=== PATIENT | male | born 2000 | race African-American/Black ===

== ENCOUNTER 2023-04-16 09:54 | Emergency (ER) | payer MEDICAID, SELFPAY ==
[2023-04-16 09:55] VITALS: BP 131/86; PULSE 102; RESP 18; TEMP 36.7; O2SAT 97; BMI 25.0
[2023-04-16] MEDS: sodium chloride 0.9% 1,000 ML 999 ML IV (11:29)
--- NOTE | 2023-04-16 11:31 | W.ED.EXTPRO ---
HPI - Extremity Problem General: Chief complaint: Nausea/Vomiting/Diarrhea Stated complaint: n/v, dizzy, racing heart Time Seen by Provider: 04/16/23 10:00 Source: patient Mode of arrival: ambulatory Limitations: no limitations History of Present Illness: Patient is a 22-year-old male with no known past medical history here for concerns of left lower extremity numbness that he states he began noticing yesterday. He states he is not having any pain in the extremity. He has not noticed any swelling or color/temperature changes. Exacerbating or alleviating factors. He states earlier today he had an episode where he felt like his epigastric region was tightening felt like he was having to suck air which then in turn made his heart feel like it was racing. He states this episode lasted approximately 30 seconds before subsiding. Upon arrival to the emergency department he is not having any chest pain, shortness of breath, difficulty breathing, or abdominal pain. His only complaint at this time is the paresthesias to his left lower leg. MD Complaint: other (L LE numbness) Onset (ago): day(s) (yesterday) Pain Consistency: constant Location: left and lower extremity Radiation: none Relieving factors: nothing Exacerbating factors: nothing Associated symptoms: Reports chest pain (subsided ); Deny fever(s) or rash Review of Systems Const: Denies: fever(s), chills, body aches, fatigue or malaise Eyes: Denies: change in vision or blurry vision Card: Reports: chest pain (subsided ); Denies: palpitations, irregular heart rhythm, edema, swelling of feet/ankles, lightheadedness, syncope, pre-syncope, dyspnea on exertion, orthopnea, leg pain with exertion or acrocyanosis Resp: Denies: dyspnea, productive cough, non-productive cough, wheezing, pain on inspiration, hemoptysis or chest congestion GI: Reports: abdominal pain (subsided now); Denies: nausea, vomiting, hematemesis, heartburn, diarrhea, GI cramping, hematochezia or melena : Denies: flank pain, difficulty urinating, dysuria, urinary frequency, urinary urgency or urinary hesitancy Musc: Denies: neck pain, back pain, extremity pain, extremity swelling, joint pain, joint swelling, joint redness, joint warmth, joint stiffness, limited range of motion, muscle cramps or muscle weakness Skin/Breast: Denies: rash Neuro: Reports: numbness in extremities (L LE) and sensory changes (L LE); Denies: headache(s), weakness in extremities or difficulty walking Physical Exam Const: COMMON NORMALS: no acute distress, average body habitus, patient oriented x3, no limitations, healthy appearing, alert and well nourished ORIENTATION/CONSCIOUSNESS: Yes awake, Yes oriented to person, Yes oriented to place and Yes oriented to time HENMT: COMMON NORMALS: normocephalic and atraumatic HEAD & SCALP: normal to inspection, normocephalic and atraumatic FACE & SINUS: face symmetric Eye: GENERAL EYE: appearance normal, both eyes and all related structures and normal light reflex DIRECT OPHTHALMOSCOPY: Yes normal light reflex Neck/C-Spine: COMMON NORMALS: full ROM, no lymphadenopathy, no meningeal signs, no JVD and No carotid bruits Chest: COMMONS NORMALS: normal inspection of the chest and normal palpation of entire chest wall Resp: COMMON NORMALS: normal respiratory effort and clear to auscultation bilaterally AUSCULTATION: clear to auscultation bilaterally Cardio: COMMON NORMALS: no JVD, regular rate and regular rhythm RATE: regular rate RHYTHM: regular rhythm GI: COMMON NORMALS: Normal to inspection, nondistended, normoactive bowel sounds present, Soft to palpation, non-tender, No hepatosplenomegaly present and no masses PALPATION: Yes Soft to palpation and Yes No hepatosplenomegaly present : COMMON NORMALS: Yes no CVA tenderness BLADDER/KIDNEY EXAM: Yes no CVA tenderness Back/Pelvis: COMMON NORMALS: no CVA tenderness, thoracic and lumbar spine normal to inspection, no thoracic nor lumbar tenderness, thoraco-lumbar ROM normal and straight leg raise negative bilaterally LUMBAR SPINE/LOWER BACK: Yes normal to inspection, Yes lumbar ROM normal, No pain with ROM, No lumbar spinal tenderness, No paraspinal muscle tenderness, No paraspinal muscle spasm and Yes straight leg raise negative bilaterally PELVIS: Yes buttocks normal and No sciatic notch tenderness SACROILIAC JOINTS: Yes SI joints normal SACRUM: no tenderness COCCYX: no tenderness Extremity: COMMON NORMALS: normal to inspection, full ROM, capillary refill normal, no joint enlargement, no clubbing, cyanosis or edema, no calf tenderness and no pedal edema GENERAL: Yes normal exam except as noted LEFT LOWER EXTREMITY: Yes upper leg and Yes lower leg OTHER: Patient reports abnormal sensation when compared to contralateral extremity to anterior and lateral thigh as well as calf and plantar regions. Anterior lower leg and medial thigh he states feels identical on both sides. Posterior thighs feel identical per patient. Patient maintains normal strength throughout extremity with intact reflexes. He has no pain. No swelling noted. No color/temp changes noted. Brisk cap refill. Easily palpable DP/PT pulses. Neuro: PIEDAD COMA SCALE: document GCS findings [place] coma scale eye opening: Spontaneous [place] coma scale verbal response: Orientated [place] coma scale motor response: Obey commands [place] coma scale total score: 15 COMMON NORMALS: patient oriented x3, moves all extremities, no focal motor deficits and gait normal SENSORIUM/ORIENTATION: Yes alert, Yes oriented to person, Yes oriented to place and Yes oriented to time MENINGEAL SIGNS: Yes no meningeal signs SPEECH: speech normal GAIT: Yes Normal gait present MOTOR EXAM: 5/5 motor strength present throughout Skin: COMMON NORMALS: no rashes or lesions noted GENERAL SKIN EXAM: no rashes or lesions noted Course Vital Signs: Vital signs: Vital Signs Temperature 98.1 F 04/16/23 09:55 Pulse Rate 102 H 04/16/23 09:55 Respiratory Rate 18 04/16/23 09:55 Blood Pressure 131/86 04/16/23 09:55 Pulse Oximetry 97 04/16/23 09:55 Oxygen Delivery Me thod Room Air 04/16/23 09:55 MDM - Extremity (Nontraumatic) Medical Decision Making Patient is a 22-year-old female presents to ED today with complaint of left leg paresthesias as well as a 30 second episode of epigastric and chest pain. Upon arrival to the emergency department patient patient does not complain of any discomforts. His only complaint is left leg paresthesia. Paresthesia does not seem to affect any specific lumbar dermatome. Strength and reflexes are unaffected. Does not have complaints of saddle anesthesia. No bowel or bladder dysfunction. He does not complain of back pain. He has no calf pain. Pulses are easily palpable. No swelling, color, or temperature changes noted. Without pain I would have a low suspicion for sickle cell vaso-occlusive symptoms. He has no personal or family history of sickle cell. Vital signs are stable. Blood work is unremarkable. At this time patient is stable to follow-up with his primary care provider. Strict return ED precautions given. Lab Data 04/16/23 11:25 04/16/23 11:25 Radiology Impressions Chest X-Ray 04/16/23 11:34 IMPRESSION: No acute findings. Laboratory Results WBC 5.34 10^3/uL (3.29-11.43) 04/16/23 11:25 RBC 5.41 10^6/uL (3.85-5.65) 04/16/23 11:25 Hgb 16.70 g/dL (11.27-16.99) 04/16/23 11:25 Hct 48.6 % (37-53) 04/16/23 11:25 MCV 89.8 fl (82-101) 04/16/23 11:25 MCH 30.9 pg (27-33) 04/16/23 11:25 MCHC 34.4 g/dL (30-55) 04/16/23 11:25 RDW 12.6 % (12.1-15.1) 04/16/23 11:25 Plt Count 243 10^3/cmm (157-399) 04/16/23 11:25 MPV 10.7 fL (7.4-10.4) H 04/16/23 11:25 Neut % (Auto) 48.9 % 04/16/23 11:25 Lymph % (Auto) 41.4 % 04/16/23 11:25 [place] % (Auto) 8.4 % 04/16/23 11:25 Eos % (Auto) 0.7 % 04/16/23 11:25 Baso % (Auto) 0.4 % 04/16/23 11:25 Neut # (Auto) 2.61 10^3/uL (1.8-7.7) 04/16/23 11:25 Lymph # (Auto) 2.2 10^3/uL (0.8-4.8) 04/16/23 11:25 [place] # (Auto) 0.5 10^3/uL (0.2-0.9) 04/16/23 11:25 Eos # (Auto) 0.0 10^3/uL (0.0-0.8) 04/16/23 11:25 Baso # (Auto) 0.0 10^3/uL (0.0-0.1) 04/16/23 11:25 Nucleated RBC % (auto) 0 % 04/16/23 11:25 Nucleated RBCs # 0.0 /100WBC 04/16/23 11:25 Sodium 138 mmol/L (136-145) 04/16/23 11:25 Potassium 4.6 mmol/L (3.5-5.1) 04/16/23 11:25 Chloride 102 mmol/L (98-107) 04/16/23 11:25 Carbon Dioxide 22 mmol/L (22-29) 04/16/23 11:25 Anion Gap 18.6 (5-19) 04/16/23 11:25 BUN 10 mg/dL (6-20) 04/16/23 11:25 Creatinine 0.7 mg/dL (0.7-1.2) 04/16/23 11:25 GFR Calculation 169.1 mL/min (90-130) H 04/16/23 11:25 Glucose 87 mg/dL (65-115) 04/16/23 11:25 Calculated Osmolality 284 mOsm/kg (285-295) L 04/16/23 11:25 Calcium 10.0 mg/dL (8.5-10.5) 04/16/23 11:25 Total Bilirubin 0.8 mg/dL (0.15-1.2) 04/16/23 11:25 AST 22 U/L (0-40) 04/16/23 11:25 ALT 14 U/L (0-41) 04/16/23 11:25 Alkaline Phosphatase 65 U/L (40-130) 04/16/23 11:25 Total Protein 8.2 g/dL (6.6-8.7) 04/16/23 11:25 Albumin 5.1 g/dL (3.5-5.2) 04/16/23 11:25 Globulin 3.1 g/dL (1.3-4.6) 04/16/23 11:25 Lipase 14 U/L (13-60) 04/16/23 11:25 Urine Color Yellow (Yellow) 04/16/23 11:28 Urine Appearance Clear (CLEAR) 04/16/23 11:28 Urine pH 6 (5-7) 04/16/23 11:28 Ur Specific [place] 1.020 (1.005-1.030) 04/16/23 11:28 Urine Protein 1+ (Negative) H 04/16/23 11:28 Urine Glucose (UA) Norm (Normal) 04/16/23 11:28 Urine Ketones 2+ (Negative) H 04/16/23 11:28 Urine Blood Neg (Negative) 04/16/23 11:28 Urine Nitrate Negative (Negative) 04/16/23 11:28 Urine Bilirubin 1+ (Negative) H 04/16/23 11:28 Urine Urobilinogen 4 mg/dL (Negative) H 04/16/23 11:28 Ur Leukocyte Esterase Trace (Negative) H 04/16/23 11:28 Urine RBC 0-4 /hpf (0-2) H 04/16/23 11:28 Urine WBC 0-4 /hpf (0-5) H 04/16/23 11:28 Ur Squamous Epith Cells 0-4 /hpf (0-5) H 04/16/23 11:28 Amorphous Sediment Not Reportable 04/16/23 11:28 Urine Bacteria None /hpf (NONE) 04/16/23 11:28 Urine Mucus 4+ /hpf 04/16/23 11:28 Discharge Plan Discharge Patient Disposition: Home Clinical Impression: Left leg paresthesias Condition: Stable Prescriptions: No Action naproxen 250 mg Tablet 250 mg PO BID PRN (Reason: Pain) Discharge Orders: Discharge ED (Routine); Ordered 04/16/23 Ordered By: Joan Jacinto Activity Restrictions/Additional Instructions: Please follow-up with your primary care provider for further evaluation. You need to return to the emergency department for any further episodes of severe chest pain or abdominal pain, leg weakness, color/temperature changes to the leg, or any significant loss of feeling. Coding Level of Care Code ED [employer] for Kiya Dee
[2023-04-16 11:33] LABS: Basophils % 0.4 %; Eosinophils % 0.7 %; Hematocrit 48.6 % (37-53); Lymphocytes # 2.2 10^3/uL (0.8-4.8); Lymphocytes % 41.4 %; Mean Corpuscular HGB Conc 34.4 g/dL (30-55); Mean Corpuscular Hemoglobin 30.9 pg (27-33); Mean Corpuscular Volume 89.8 fl (82-101); Mean Platelet Volume 10.7 fL (7.4-10.4); Monocytes # 0.5 10^3/uL (0.2-0.9); Monocytes % 8.4 %; Neutrophils # 2.61 10^3/uL (1.8-7.7); Neutrophils % 48.9 %; Nucleated Red Blood Cells % 0 %; Platelet Count 243 10^3/cmm (157-399); Red Blood Count 5.41 10^6/uL (3.85-5.65); Red Cell Distribution Width 12.6 % (12.1-15.1); White Blood Count 5.34 10^3/uL (3.29-11.43)
--- NOTE | 2023-04-16 11:34 | XRR_ITS ---
PROCEDURE INFORMATION: Exam: XR Chest Exam date and time: 04/16/2023 11:45 AM Age: 22 years old Clinical indication: Pain; Angina pectoris; Additional info: Chest pain TECHNIQUE: Imaging protocol: Radiologic exam of the chest. Views: 1 view. Total images: 11 COMPARISON: No relevant prior studies available. FINDINGS: Lungs: Unremarkable. No consolidation. Pleural spaces: Unremarkable. No pleural effusion. No pneumothorax. Heart/Mediastinum: Unremarkable. No cardiomegaly. Bones/joints: Unremarkable. XR/XR chest 1V portable [id number] IMPRESSION: No acute findings.
[2023-04-16 11:50] LABS: Alanine Aminotransferase 14 U/L (0-41); Albumin Level 5.1 g/dL (3.5-5.2); Alkaline Phosphatase 65 U/L (40-130); Blood Urea Nitrogen 10 mg/dL (6-20); Carbon Dioxide 22 mmol/L (22-29); Chloride 102 mmol/L (98-107); Globulin 3.1 g/dL (1.3-4.6); Glomerular Filtration Rate 169.1 mL/min (90-130); Glucose 87 mg/dL (65-115); Lipase 14 U/L (13-60); Osmolality Calculated 284 mOsm/kg (285-295); Sodium 138 mmol/L (136-145); Total Bilirubin 0.8 mg/dL (0.15-1.2); Total Protein 8.2 g/dL (6.6-8.7)
[2023-04-16 11:53] LABS: Anion Gap 18.6 (5-19); Aspartate Amino Transferase 22 U/L (0-40); Potassium 4.6 mmol/L (3.5-5.1)
[2023-04-16 12:14] LABS: Glucose Urine UA Norm (Normal); Protein Urine 1+ (Negative); Urine Appearance Clear (CLEAR); Urine Color Yellow (Yellow); pH Urine 6 (5-7)
[2023-04-16 12:15] LABS: Add Urine Culture? No; Add Urine Microscopic? YES; Bilirubin Urine 1+ (Negative); Blood Urine Neg (Negative); Ketones Urine 2+ (Negative); Leukocyte Esterase Urine Trace (Negative); Mucus Urine 4+ /hpf; Nitrate Urine Negative (Negative); RBC Urine 0-4 /hpf (0-2); Squamous Epithelial Cell Urine 0-4 /hpf (0-5); Urobilinogen Urine 4 mg/dL (Negative); WBC Urine 0-4 /hpf (0-5)
== END 2023-04-16 12:33 | disposition home or self-care (01) ==
PROVIDERS: Emergency Provider Physician Assistant
DX: R20.2 Paresthesia of skin (principal)
CPT/HCPCS: 71045; 80053; 81001; 83690; 85025; 99284; J7030